=== PATIENT | male | born 1970 | race Caucasian/White ===

== ENCOUNTER → 2019-12-01 06:53 | Outpatient (CLI) | payer OTHER, SELFPAY ==
[2019-11-23 14:24] VITALS: BMI 31.7
--- NOTE | 2019-12-01 06:53 | MRI_ITS ---
STUDY: MRI BRAIN WITH AND WITHOUT CONTRAST REASON FOR EXAM: Male, 49 years old. Right eye blurring of vision x10-12 weeks. Suspect occipital lobe CVA from A. Fib related embolus. TECHNIQUE: Standardized multiplanar fat and water weighted pulse sequences were obtained. 21ml of IV Dotarem was administered for the contrast portion of the examination. COMPARISON: None. FINDINGS: No restricted diffusion to suspect acute or subacute ischemic infarct. No focal signal abnormalities throughout the brain parenchyma. Normal size of the ventricles and extra-axial spaces for the patient''s age. Normal white matter tracts of the supratentorial brain. Normal bilateral basal ganglia. Normal thalami. There is no extra-axial fluid accumulation. Normal flow voids within the major intracranial circulation suggesting patency by spin echo criteria. Normal venous enhancement. There is no enhancing intra-axial or extra-axial abnormality. Normal sella turcica, pituitary gland, infundibular stalk, optic chiasm and hypothalamus. Normal tectal plate and pineal gland. Normal midbrain, meka and medulla. Normal cerebellum. Normal basal cisterns. Normal bilateral temporal bones. Normal bilateral internal auditory canals. No demonstrated orbital abnormality, within the constraints of a routine brain study. Normal visualized paranasal sinuses. Normal calvarium and skull base. Normal visualized soft tissue structures. Normal visualized upper cervical spine. MRI/Brain W/WO Contrast IMPRESSION: Normal unenhanced and enhanced MRI of the brain. Electronically Signed: Fercho Barrera MD at 11:41 EDT , Service support ,
[2019-12-01 09:32] LABS: Absolute Neutrophil Count 2.2 X10^3/uL (2.0-7.7); Basophil# 0.02 X10^3/uL; Basophil% 0.5 % (0-1); Eosinophil# 0.07 X10^3/uL; Eosinophils% 1.7 % (0-5); Hematocrit 43.1 % (40-54); Hemoglobin 14.4 g/dL (13.0-16.5); Lymphocyte % 29.9 % (19-41); Mean Corp Hgb Conc 33.4 g/dL (32-36); Mean Corpuscular Hgb 30.9 pg (27.0-32.0); Mean Corpuscular Volume 92.5 fL (80-94); Monocyte# 0.55 X10^3/uL; Monocyte% 13.7 % (0-10); NRBC Flagged by Analyzer 0 % (0-5); Neutrophil # 2.16 X10^3/uL (2.7-7.7); Platelet Count 242 K/mm3 (150-450); RBC Distribution Width CV 12.1 % (11.6-14.6); RBC Distribution Width SD 41.2 fl (35.1-43.9); Red Blood Count 4.66 M/mm3 (4.6-6.2)
[2019-12-01 10:12] LABS: ALB/GLOB Ratio 1.1 RATIO (0.9-2.4); AST(SGOT) 22 U/L (15-37); Alanine Aminotransfer ALT/SGPT 40 U/L (16-61); Albumin, Serum 3.6 g/dL (3.2-5.0); Alkaline Phosphatase 74 U/L (45-117); Anion Gap 5 (5-15); BUN 20 mg/dL (7-18); BUN/Creat Ratio 22.1 RATIO (10-20); Calcium,Total 8.4 mg/dL (8.5-10.1); Chloride 105 mmol/L (98-107); Cholesterol 165 mg/dL (200); Creatinine, Serum 0.91 mg/dL (0.70-1.30); EST Glomerular Filtration Rate 94 mL/min (>60); Est Glom Filt Rate - Afr Amer 114 mL/min (>60); Free T3 3.2 pg/mL (2.18-3.98); Globulin 3.3 g/dL (2.2-4.2); Glucose 95 mg/dL (74-106); High Density Lipoprotein 54 mg/dL; Potassium 4.2 mmol/L (3.5-5.1); Protein, Total 6.9 g/dL (6.4-8.2); Sodium Level 140 mmol/L (136-145); T4 Total, Thyroxin 8.5 ug/dL (4.5-12.1); Thyroid Stim Hormone (TSH) 1.47 uIU/mL (0.358-3.74); Triglycerides 56 mg/dL; Very Low Density Lipoprotein 11 mg/dL (5-40)
== END ==
PROVIDERS: PCP Family Medicine; Referring Provider Specialist; Visit Provider Specialist
DX: H53.8 Other visual disturbances (principal); I34.1 Nonrheumatic mitral (valve) prolapse; I10 Essential (primary) hypertension; I48.91 Unspecified atrial fibrillation
CPT/HCPCS: 36415; 70553; 80053; 80061; 84436; 84443; 84481; 85025; A9575

== ENCOUNTER → 2019-12-03 13:56 | Outpatient (CLI) | payer OTHER, SELFPAY ==
[2019-11-23 14:24] VITALS: BMI 31.7
--- NOTE | 2019-12-03 13:58 | ECHOD_ITS ---
Reason For Study: AFIB, H/O MVP. Procedure This was a 2D Doppler, Color Flow transthoracic echocardiogram. The study was technically difficult. Due to arrhythmia. Exam performed in department. Left Ventricle Normal LV size. The estimated ejection fraction is 60 %. Normal diastology for age. No regional wall motion abnormalities noted. Right Ventricle Normal RV size. Normal systolic function. Atria The left atrium is mildly enlarged. Normal right atrium. No doppler evidence for ASD. Mitral Valve There is no mitral valve stenosis. Trivial mitral valve insufficiency. Tricuspid Valve There is no tricuspid stenosis. Unable to estimate RV systolic pressure due to inadequate jet, pulmonary artery pressure probably normal. Aortic Valve Trisinus/trileaflet aortic valve. There is no aortic stenosis. No aortic valve insufficiency. Pulmonic Valve There is no pulmonic valvular stenosis. No pulmonic valve insufficiency. Great Vessels Normal aortic root. Pericardium/Pleural No pericardial effusion. MMode/2D Measurements & Calculations LVIDd: 4.4 cm IVSd: 1.0 cm Ao root diam: 3.7 cm LVIDs: 2.9 cm LVPWd: 1.1 cm RVDd: 3.6 cm FS: 33.4 % LAV(MOD-bp): 66.5 ml LA A4 area: 21.8 cm2 LA dimension(2D): 4.0 cm LAV(MOD-bp) Indexed: 29.2 ml/m2 LAV(MOD-sp2): 63.4 ml LAV(MOD-sp4): 66.9 ml RA A4 area: 18.9 cm2 Doppler Measurements & Calculations MV E max sabra: 107.0 cm/sec Ao V2 max: 102.6 cm/sec LV V1 max: 98.3 cm/sec Ao max P.2 mmHg LV V1 max P.9 mmHg Ao V2 mean: 77.2 cm/sec LV V1 mean P.0 mmHg Ao mean P.5 mmHg LV V1 mean: 67.7 cm/sec Ao V2 VTI: 16.6 cm LV V1 VTI: 15.9 cm PA V2 max: 90.4 cm/sec TR max sabra: 273.9 cm/sec TR max P.0 mmHg Interpretation Summary The estimated ejection fraction is 60 %. Normal diastology for age. The left atrium is mildly enlarged. Trivial mitral valve insufficiency. Ordering Physician: Artis Hilliard Referring Physician: Karsten Diggs Performed By: Petty Collazo RDCS, RVT
== END ==
PROVIDERS: PCP Family Medicine; Referring Provider Specialist; Visit Provider Specialist
DX: I48.91 Unspecified atrial fibrillation (principal); I10 Essential (primary) hypertension; I34.1 Nonrheumatic mitral (valve) prolapse; R55 Syncope and collapse
CPT/HCPCS: 93306

== ENCOUNTER 2020-12-06 09:00 | Outpatient (RCR) | payer OTHER, SELFPAY ==
[2020-09-12 13:27] VITALS: BMI 33.3
[2020-12-06] MEDS: COVID-19 VACC, MRNA(PFIZER)/PF 30 MCG/0.3 ML SYRINGE IM (15:00)
[2020-12-27] MEDS: COVID-19 VACC, MRNA(PFIZER)/PF 30 MCG/0.3 ML SYRINGE IM (18:14)
== END 2021-02-28 23:59 ==
LOC: IMMUN 09:00
PROVIDERS: PCP Family Medicine; Visit Provider Family Medicine
DX: Z23 Encounter for immunization (principal)
CPT/HCPCS: 0001A; 0002A; 91300

== ENCOUNTER → 2021-03-21 06:30 | Outpatient (CLI) | payer OTHER, SELFPAY ==
[2021-03-08 08:58] VITALS: BMI 33.3
--- NOTE | 2021-03-21 08:39 | STRESSREP_ITS ---
Stress Test Report Date: 03-21-2021 Procedure: Pharmacologic stress nuclear imaging study Indications: Chest pain; paroxysmal atrial fibrillation; mitral valve prolapse Consent: Per the patient Procedure: The patient underwent pharmacologic (Regadenoson 0.4mg ) evaluation with a peak heart rate of 157 beats per minute (92%predicted maximal heart rate) and a peak blood pressure of 170/110 mmHg. The baseline ECG demonstrated atrial fibrillation. The peak pharmacologic ECG demonstrated continued atrial fibrillation with diffuse nonspecific ST segment a bnormality. There were no cardiac dysrhythmias pretest, during pharmacologic infusion, or recovery. There was no complaint of chest discomfort during pharmacologic infusion or recovery. The examination was discontinued secondary to completion of protocol. Impression: 1. Pharmacologic (Regadenoson) evaluation 2. Peak pharmacologic ECG with continued atrial fibrillation with diffuse nonspecific ST segment abnormality. 3. There were no cardiac dysrhythmias pretest, during pharmacologic infusion, or recovery. 4. Nuclear images pending Myocardial perfusion imaging study: Technique: The patient was injected with millicuries of technetium 99m Cardiolite and subsequently rest SPECT Cardiolite nuclear imaging was obtained in the horizontal long, vertical long, and short axis views. The patient underwent pharmacologic (Regadenoson) evaluation with a peak heart rate of 157 beats per minute (92% percent predicted maximal heart rate) and a peak blood pressure of 170/110 mmHg. The patient was injected with millicuries of technetium 99m Cardiolite and subsequently stress SPECT Cardiolite nuclear imaging was obtained in the horizontal long, vertical long, and short axis views. A gated Cardiolite study at peak stress was obtained. Interpretation: Rest and stress SPECT Cardiolite nuclear imaging status post realignment, normalization, and attenuation correction demonstrate the appearance of body motion during image acquisition and otherwise the appearance of relative uniform tracer uptake and myocardial perfusion appearing within normal limits. There is end systolic thickening and brightening. The gated Cardiolite study demonstrates myocardial thickening and inward wall motion. The reported LVEF is 79%. Impression: 1. Rest and stress SPECT Cardiolite nuclear imaging demonstrate the appearance of body motion during image acquisition and otherwise the appearance of relative uniform tracer uptake and myocardial perfusion appearing within normal limits. 2. The gated Cardiolite study reports an LVEF of 79%. This note was generated with [employer] software. It may contain incorrect words, spelling, and punctuation that were not noted in checking the note before signing.
== END ==
PROVIDERS: PCP Family Medicine; Referring Provider Nurse Practitioner Family; Visit Provider Nurse Practitioner Family
DX: I48.0 Paroxysmal atrial fibrillation (principal); R07.9 Chest pain, unspecified
CPT/HCPCS: 78452; 93017; A9500; A4216; J2785

== ENCOUNTER 2021-04-21 08:16 | Day surgery (SDC) | payer OTHER, SELFPAY ==
[2021-04-13 08:35] VITALS: BMI 33.0
--- NOTE | 2021-04-13 09:50 | RAD_ITS ---
STUDY: X-RAY CHEST REASON FOR EXAM: Male, 50 years old. SOB TECHNIQUE: PA and lateral views of the chest. COMPARISON: None. FINDINGS: The lungs are clear and expanded. There is no demonstrated pleural abnormality. Normal size heart. Normal mediastinum and alexey. Normal visualized pulmonary arteries. Normal visualized aortic arch and descending thoracic aorta. Normal visualized thoracic spine. Normal visualized ribs, clavicles, and shoulders. There is no demonstrated abnormality of the visualized soft tissue structures of the upper abdomen. RAD/Chest PA and Lateral IMPRESSION: Normal x-ray examination of the chest. Electronically Signed: Rehan Villeda MD at 14:41 EDT , Service support ,
[2021-04-13 10:23] LABS: Hematocrit 45.2 % (40-54); Hemoglobin 14.9 g/dL (13.0-16.5); Mean Corpuscular Hgb 30.8 pg (27.0-32.0); Mean Corpuscular Volume 93.6 fL (80-94); Mean Platelet Vol. 10.7 fl (6.2-12.0); Platelet Count 252 K/mm3 (150-450); RBC Distribution Width SD 41.2 fl (35.1-43.9); Red Blood Count 4.83 M/mm3 (4.6-6.2); White Blood Count 4.2 K/mm3 (4.4-11.0)
[2021-04-13 11:04] LABS: Anion Gap 4 (5-15); BUN 12 mg/dL (7-18); BUN/Creat Ratio 14.3 RATIO (10-20); Calcium,Total 8.8 mg/dL (8.5-10.1); Chloride 105 mmol/L (98-107); Cholesterol 194 mg/dL (200); Creatinine, Serum 0.84 mg/dL (0.70-1.30); EST Glomerular Filtration Rate 103 mL/min (>60); Est Glom Filt Rate - Afr Amer 124 mL/min (>60); Glucose 98 mg/dL (74-106); High Density Lipoprotein 61 mg/dL; Magnesium 2.3 mg/dL (1.6-2.6); Potassium 4.3 mmol/L (3.5-5.1); Sodium Level 139 mmol/L (136-145); Thyroid Stim Hormone (TSH) 1.09 uIU/mL (0.358-3.74); Triglycerides 99 mg/dL; Very Low Density Lipoprotein 20 mg/dL (5-40)
[2021-04-20 08:11] VITALS: BMI 33.0
--- NOTE | 2021-04-21 07:32 | HP.PCM_ITS ---
History and Physical Date of Admission: 04/21/21 [facility] [address] [place] [address] [phone] OFFICE VISITDate of Service: 04/13/21 MR#:[id number]:[id number]: MAURY YOO #[id number]:[id number] Provider: DAVIDSON Peck/Sex: 50/M [facility] HPI History of Present Illness Surgical H&P: Yes Details: This is a 50-year-old gentleman who presents here today for follow-up on his atrial fibrillation and hypertension. When he was seen in the office last month he was noted to be in atrial fibrillation. He was sometimes aware of this. He did undergo a stress test which was negative. His blood pressures at home have still been elevated. He does feel that at times he can feel his palpitations. He does feel that he may be more short of breath at times. He also feels that occasionally has palpitations. He does not have any chest pain or lower extremity edema. 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 Accompanied by: None Is patient in pain?: No Allergies tramadol Allergy (Intermediate, Verified 04/13/21 08:33) Unknown Medications metoprolol succinate 100 mg tablet,extended release 24 hr 100 mg PO DAILY tab 09/12/20 [History Confirmed 04/13/21] apixaban 5 mg tablet 5 mg PO BID #180 tab 03/08/21 [Rx Confirmed 04/13/21] lisinopril 10 mg tablet 10 mg PO DAILY #30 tab 04/13/21 [Rx Confirmed 04/13/21] [facility] Medical History (Updated 04/13/21 @ 09:24 by Shiloh CEDEÑO, DAVIDSON) Atrial fibrillation with RVR Blurred vision Erectile dysfunction Essential hypertension GERD (gastroesophageal reflux disease) History of syncope Longstanding persistent atrial fibrillation Migraines MVP (mitral valve prolapse) Prediabetes Surgical History History of cholecystectomy Family History Mother Fibromyalgia Father Heart disease Valve replacement Pulmonary fibrosis Grandmother CAD (coronary artery disease), Onset Age: 60 CABG Grandfather Cancer throat Grandfather Myocardial infarction Social History Smoking Status: Never smoker alcohol intake: never substance use type: does not use caffeine: Yes Type: coffee Number of servings: 1 ROS Const Const: Positive for fatigue (sometimes); Negative for weakness, headache(s), frequent falls, excessive sweating, weight gain or weight loss Eyes Eyes: Negative for blind spots, loss of peripheral vision, transient loss of vision, blurry vision, change in vision or double vision ENT ENT: Negative for headache(s), dizziness, tinnitus, Nosebleed/epistaxis or balance problems Cardio Chest Pain: No Palpitations: Yes Edema: None Muscle aches with walking: None Resp Respiratory: Negative for SOB with activity, SOB at rest, SOB orthopnea\SOB lying down or Cough GI GI: Negative nausea, vomiting, heartburn, bloating, vomiting blood/hematemesis, bright, red blood in stools or black,tarry stools : Negative for hematuria Musc Musc: Negative for muscle aches/ myalgia, muscle weakness, joint pain or balance problems Skin Skin: Negative rash or wounds Neuro Neuro: Negative for dizziness, lightheadedness, near syncope, syncope, orthostatic symptoms, frequent falls, headache(s), weakness, confusion, memory loss, restless legs, blurry vision or double vision Gui Hematologic/Lymphatic: Negative for easy bleeding or easy bruising Endo Endo: Positive for fatigue (sometimes); Negative for cold intolerance, heat intolerance or excessive sweating Psych Psych: Negative for anxiety or depression Allergy Allergy/Immunology: Negative for rash Cardiology Exam Const Appearance: cooperative, healthy appearing, comfortable, no acute distress and well developed Orientation: alert, awake and oriented x3 Head Head: normal to inspection Ears: hearing grossly normal bilaterally Nose: external nose normal Face and Sinus: face symmetric Mouth: oral mucosae normal, lip normal and moist mucous membranes Eyes General: appearance normal, both eyes and all related structures Eyelids: eyelids normal Conjunctivae: conjunctivae normal Pupils: PERRL EOM: EOM intact bilaterally Neck Neck: normal visual inspection and trachea midline; Negative no JVD Carotids: Negative bruit Chest Chest inspection: normal inspection of the chest Auscultation: Bilateral: Clear to Auscultation Cardio Palpation: normal PMI Rate: regular rate Rhythm: irregularly irregular Heart sounds: S1 normal and S2 normal; Negative rub, gallop or murmur GI GI: soft, no hepatosplenomegaly and bowel sounds present Neuro General: patient alert, patient awake, patient oriented x3 and CN's II-XI intact bilaterally Extremities Pulses: Normal: Right Posterior Tibial Pulse, Left Posterior Tibial Pulse, Right Radial Pulse and Left Radial Pulse Lower Extremity Edema: None: Bilateral Psych Psychological: normal affect Assessment and Plan Assessment and Plan (1) Longstanding persistent atrial fibrillation: Status: Acute Orders: Orders: Cardioversion Today Basic Metabolic Profile (BMP) Today Magnesium Today Thyroid Stim Hormone (TSH) Today CBC-Complete Blood Cnt No Diff Today Chest PA and Lateral Today Lipid Profile Today Plan - Shiloh CEDEÑO, PA: Feel that patient's atrial fibrillation is now persistent. Feel that he would benefit from a cardioversion. This is scheduled for the near future as his anticoagulation has not been interrupted. He will continue with his metoprolol and stop his Cardizem. As his heart rate is adequately controlled. If cardioversion is not successful we will consider antiarrhythmic and possible sleep studies. Patient Instructions: Your cardioversion is scheduled for 04/21 at noon. You need to arrive at 1030. 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 Patient will stop his Cardizem and start lisinopril. We will continue to monitor and adjust accordingly. Plan Details Other Medications: New: lisinopril 10 mg PO DAILY 30 tabs 3RF Discontinued: diltiazem HCl Discontinued Reason: Order Changed 120 mg PO DAILY 30 caps 11RF Follow Up: 04/13/21 (needs EKG scheduled one week after 04/21- scheduled for cardioversion that day) 6 Weeks (4-6 Weeks MMM) COVID (Procedure Consent) Procedure Criteria Procedure Criteria: Yes Elective The surgeon/proceduralist and patient have discussed in detail the risk of exposure to and/or potential harm posed by the COVID-19 virus with having a surgery/procedure at this time versus the risk of delaying the surgery/procedure. It is not possible to know either the risk of delaying the surgery or procedure or chance of getting an infection with perfect accuracy, but a joint decision was made between the patient and the surgeon/proceduralist to proceed at this time with the scheduled surgery/procedure as indicated on the consent form. Coding Level of Care Code Off vis,est,level 4 Diagnoses Longstanding persistent atrial fibrillation I48.11 Essential hypertension I10 Coding Level of Care Code Off vis,est,level 4 Diagnoses Longstanding persistent atrial fibrillation I48.11 Essential hypertension I10 Supplemental Info Supplemental Information Echocardiogram 2020: The estimated ejection fraction is 60 %. Normal diastology for age. The left atrium is mildly enlarged. Trivial mitral valve insufficiency. ADDENDUM by Dr. Yony Diggs MD on 03/21/21 at 1203 Addendum: The technique portion of the report should read as the following: Technique: The patient was injected with 14.6 millicuries of technetium 99m Cardiolite and subsequently rest SPECT Cardiolite nuclear imaging was obtained in the horizontal long, vertical long, and short axis views. The patient underwent pharmacologic (Regadenoson) evaluation with a peak heart rate of 157 beats per minute (92% percent predicted maximal heart rate) and a peak blood pressure of 170/110 mmHg. The patient was injected with 44.1 millicuries of technetium 99m Cardiolite and subsequently stress SPECT Cardiolite nuclear imaging was obtained in the horizontal long, vertical long, and short axis views. A gated Cardiolite study at peak stress was obtained. 03/21/21 1203Date Yony Diggs MD cc: BHARGAV Horowitz; Dr. James Diggs MD ~*Signed Stress Test Report Date: 03-21-2021 Procedure: Pharmacologic stress nuclear imaging study Indications: Chest pain; paroxysmal atrial fibrillation; mitral valve prolapse Consent: Per the patient Procedure: The patient underwent pharmacologic (Regadenoson 0.4mg ) evaluation with a peak heart rate of 157 beats per minute (92%predicted maximal heart rate) and a peak blood pressure of 170/110 mmHg. The baseline ECG demonstrated atrial fibrillation. The peak pharmacologic ECG demonstrated continued atrial fibrillation with diffuse nonspecific ST segment abnormality. There were no cardiac dysrhythmias pretest, during pharmacologic infusion, or recovery. There was no complaint of chest discomfort during pharmacologic infusion or recovery. The examination was discontinued secondary to completion of protocol. Impression: 1. Pharmacologic (Regadenoson) evaluation 2. Peak pharmacologic ECG with continued atrial fibrillation with diffuse nonspecific ST segment abnormality. 3. There were no cardiac dysrhythmias pretest, during pharmacologic infusion, or recovery. 4. Nuclear images pending Myocardial perfusion imaging study: Technique: The patient was injected with millicuries of technetium 99m Cardiolite and subsequently rest SPECT Cardiolite nuclear imaging was obtained in the horizontal long, vertical long, and short axis views. The patient underwent pharmacologic (Regadenoson) evaluation with a peak heart rate of 157 beats per minute (92% percent predicted maximal heart rate) and a peak blood pressure of 170/110 mmHg. The patient was injected with millicuries of technetium 99m Cardiolite and subsequently stress SPECT Cardiolite nuclear imaging was obtained in the horizontal long, vertical long, and short axis views. A gated Cardiolite study at peak stress was obtained. Interpretation: Rest and stress SPECT Cardiolite nuclear imaging status post realignment, normalization, and attenuation correction demonstrate the appearance of body motion during image acquisition and otherwise the appearance of relative uniform tracer uptake and myocardial perfusion appearing within normal limits. There is end systolic thickening and brightening. The gated Cardiolite study dem onstrates myocardial thickening and inward wall motion. The reported LVEF is 79%. Impression: 1. Rest and stress SPECT Cardiolite nuclear imaging demonstrate the appearance of body motion during image acquisition and otherwise the appearance of relative uniform tracer uptake and myocardial perfusion appearing within normal limits. 2. The gated Cardiolite study reports an LVEF of 79%. Labs: LDL Cholesterol 113 mg/dL (0-130) HDL Cholesterol 61 mg/dL (40-) Triglycerides 99 mg/dL (-199) VLDL Cholesterol 20 mg/dL (5-40) Diagnostics: Electrocardiogram Echocardiogram Stress Test NM Stress Test Chest X-Ray Pulmonary: No Data to Display 04/13/21 [id number]<Electronically signed by Shiloh CEDEÑO>Date Shiloh CEDEÑO Cosigner Signature:Date (if applicable) CC: Dr. James Diggs MD ~ I have examined the patient the following changes are noted: This note was generated using a voice recognition system and there may be incorrect words, spelling or punctuation that were not noted when reviewing the office note prior to saving.
--- NOTE | 2021-04-21 10:14 | PRO.PCM_ITS ---
Procedure Report Date of Procedure: 04/21/21 CONSCIOUS SEDATION REPORT DATE OF SERVICE: April 21, 2021 BRIEF HISTORY OF PRESENT ILLNESS: The patient is a 50-year-old male who presented to [facility] for an elective outpatient cardioversion due to underlying atrial fibrillation. The patient denies any prior anesthetic complications. He has never been diagnosed with COPD, asthma or obstructive sleep apnea. The patient is a lifelong non-smoker. He is systemically anticoagulated on Eliquis. His last surface echocardiogram revealed an ejection fraction of 60%. PHYSICAL EXAMINATION: VITAL SIGNS: Reviewed and were acceptable. GENERAL: The patient is a male, in no apparent distress, speaking in full sentences. HEENT: Normocephalic, atraumatic. Mucous membranes are moist and pink. Good mouth opening noted. Trachea is midline. CHEST: S1, S2 irregularly irregular. No murmurs, rubs or gallops were noted. LUNGS: Clear to auscultation bilaterally without appreciable wheezes, rales or rhonchi. ABDOMEN: Soft, nontender, nondistended. Positive bowel sounds. EXTREMITIES: There is no clubbing, cyanosis or edema. ASA Class: II DESCRIPTION OF PROCEDURE: After confirmation of informed consent, the patient's anesthesia plan was reviewed in detail. Propofol was chosen. Risks and benefits were reviewed and the patient agreed to proceed. At 0954, the patient was given his first bolus of propofol. In total, throughout the duration of the procedure, the patient required a total of 150 mg of propofol to achieve an appropriate level of sedation, after which time, he was given a 200 joule synchronized cardioversion by Dr. Diggs at the bedside. This was successful in achieving normal sinus rhythm. The patient was monitored until 1008, at which time he reached his baseline mental status and function. The patient tolerated the procedure well. COMPLICATIONS: None ESTIMATED BLOOD LOSS: None RECOMMENDATIONS: Okay to recover in usual fashion. Procedures Pulmonary 9xxxx: [id number] Con Sedation
--- NOTE | 2021-04-21 11:52 | CARDIOVERS ---
Cardioversion Cardioversion: Date: 04-21-2021 Procedure: Synchronized Biphasic DC Cardioversion Indications: Atrial fibrillation Consent: Per the Patient Anesthesia: per Dr. Wiley of pulmonology and critical care medicine with propofol 150 mg IV push total Procedure: Synchronized Biphasic DC Cardioversion: 200 J x 1: Result: Sinus rhythm Complications: no apparent complications This note was generated with [employer] software. It may contain incorrect words, spelling, and punctuation that were not noted in checking the note before signing.
== END 2021-04-21 11:07 | disposition home or self-care (01) ==
PROVIDERS: Physician Assistant Medical; PCP Family Medicine; Referring Provider Internal Medicine Cardiovascular Disease; Visit Provider Internal Medicine Cardiovascular Disease
DX: I48.11 Longstanding persistent atrial fibrillation (principal); I10 Essential (primary) hypertension; R73.03 Prediabetes; K21.9 Gastro-esophageal reflux disease without esophagitis; Z79.01 Long term (current) use of anticoagulants; Z79.899 Other long term (current) drug therapy
CPT/HCPCS: 36415; 71046; 80048; 80061; 83735; 84443; 85027; 92960; 93005; J7040

== ENCOUNTER → 2022-09-05 | Outpatient (CLI) | payer OTHER, SELFPAY ==
--- NOTE | 2022-09-05 08:07 | MRI_ITS ---
EXAM: MR RIGHT LOWER EXTREMITY WITHOUT INTRAVENOUS CONTRAST, KNEE CLINICAL INDICATION: pain and injury TECHNIQUE: Multiplanar and multisequence MR images of the right knee without intravenous contrast. This report was created using [employer] report generation technology. COMPARISON: Previous ratio was probably has gone to the FINDINGS: BONES/JOINTS: See below. EXTENSOR MECHANISM: Unremarkable. MEDIAL MENISCUS: Longitudinal horizontal oblique tearing of the posterior horn the medial meniscus. Tear contacts the inferior meniscal surface. There is an associated tiny parameniscal ganglion cyst. LATERAL MENISCUS: Unremarkable. MEDIAL CAPSULE/SUPPORTING STRUCTURES: Unremarkable. Intact. LATERAL CAPSULE/SUPPORTING STRUCTURES: Unremarkable. Lateral collateral ligamentous complex, inclusive of the popliteal tendon, are intact. ANTERIOR CRUCIATE LIGAMENT: Unremarkable. Intact. POSTERIOR CRUCIATE LIGAMENT: Unremarkable. Intact. MUSCLES: Unremarkable. CARTILAGE: Small area of focal high-grade chondral loss involving the medial patellar facet without subchondral signal alteration. FLUID: Small joint effusion with small Irving''s cyst. OTHER SOFT TISSUES: Prepatellar subcutaneous edema. No organized fluid collections. MRI/Lower Ext Joint Only (Routine) IMPRESSION: 1. Longitudinal horizontal oblique tearing of the posterior horn the medial meniscus. Tear contacts the inferior meniscal surface. There is an associated tiny parameniscal ganglion cyst. 2. Small area of focal high-grade chondral loss involving the medial patellar facet without subchondral signal alteration. 3. Small joint effusion with small Irving''s cyst. Electronically Signed: Rai Day MD at 21:30 EST Reading Location ID and State: [address] [place] [address] Tel , Service support ,
== END | disposition home or self-care (01) ==
PROVIDERS: PCP Family Medicine; Referring Provider Physician Assistant; Visit Provider Physician Assistant
DX: M23.91 Unspecified internal derangement of right knee (principal)
CPT/HCPCS: 73721

== ENCOUNTER → 2023-09-17 | Outpatient (CLI) | payer OTHER, SELFPAY ==
--- NOTE | 2023-09-17 17:46 | CT_ITS ---
STUDY: CTA CHEST REASON FOR EXAM: Male, 53 years old. Ascending aorta dilatation RADIATION DOSAGE (If Supplied By Facility): CTDIvol = ( 12.26 ) mGy, DLP = ( 459.71 ) mGycm TECHNIQUE: The examination was performed with the intravenous administration of IV 100mL Isovue-[id number]. Post-processing of the angiographic images was performed, with multiplanar reformation and 3D reconstruction. Individualized dose optimization techniques were used for this CT. COMPARISON: No relevant prior comparison study available FINDINGS: Normal enhancement of the main pulmonary artery and right and left pulmonary arteries. Normal enhancement of the bilateral peripheral pulmonary arteries. There is no demonstrated pulmonary embolism. Suboptimal evaluation of the distal peripheral branches. Normal thoracic aorta and visualized great vessels. The ascending thoracic aorta measures about 3.6 cm in transverse diameter. There is no evidence of aneurysm. There is no demonstrated aortic dissection. Normal heart and pericardium. Normal mediastinum. Normal hilar regions. Normal visualized trachea and bronchi. The lungs are well expanded. There are no pulmonary infiltrates. No evidence of pulmonary nodules. There are no pleural effusions. Normal chest wall structures. Schmorl''s nodes and mid thoracic spine. No demonstrated acute osseous changes. Visualized portions of the upper abdomen are essentially unremarkable. Status post cholecystectomy. CT/CTA Chest W/WO Contrast IMPRESSION: 1. No evidence of central pulmonary embolism or aortic dissection. 2. No evidence of aortic aneurysm. 3. No mass, adenopathy or acute pulmonary infiltrates. Electronically Signed: Speedy Matthews MD at 11:19 EST ,
[2023-09-17 18:16] LABS: CREATININE FINGERSTICK < 1.0 mg/dL (0.70-1.30); EGFR FINGERSTICK > 60.0000 mL/min (>60)
== END | disposition home or self-care (01) ==
LOC: CT 17:42
PROVIDERS: PCP Family Medicine; Referring Provider Nurse Practitioner Gerontology; Visit Provider Nurse Practitioner Gerontology
DX: I77.810 Thoracic aortic ectasia (principal)
CPT/HCPCS: 71275; Q9967

== ENCOUNTER → 2024-07-06 | Outpatient (CLI) | payer OTHER, SELFPAY ==
[2024-07-06 07:20] LABS: Hematocrit 39.6 % (40-54); Mean Corp Hgb Conc 32.8 g/dL (32-36); Mean Corpuscular Hgb 31.4 pg (27.0-32.0); Mean Corpuscular Volume 95.7 fL (80-94); Mean Platelet Vol. 10.4 fl (6.2-12.0); Platelet Count 239 K/mm3 (150-450); RBC Distribution Width CV 12.4 % (11.6-14.6); RBC Distribution Width SD 43.5 fl (35.1-43.9); Red Blood Count 4.14 M/mm3 (4.6-6.2); White Blood Count 5.7 K/mm3 (4.4-11.0)
[2024-07-06 08:19] LABS: ALB/GLOB Ratio 1.1 RATIO (0.9-2.4); AST(SGOT) 16 U/L (15-37); Alanine Aminotransfer ALT/SGPT 23 U/L (16-61); Albumin, Serum 3.4 g/dL (3.2-5.0); Alkaline Phosphatase 74 U/L (45-117); Anion Gap 5 (5-15); BUN 18 mg/dL (7-18); BUN/Creat Ratio 25.5 RATIO (10-20); Calcium,Total 8.3 mg/dL (8.5-10.1); Chloride 108 mmol/L (98-107); Cholesterol 185 mg/dL (200); Creatinine, Serum 0.71 mg/dL (0.70-1.30); EST Glomerular Filtration Rate 123 mL/min (>60); Est Glom Filt Rate - Afr Amer 149 mL/min (>60); Glucose 101 mg/dL (74-106); High Density Lipoprotein 66 mg/dL; Potassium 3.7 mmol/L (3.5-5.1); Protein, Total 6.4 g/dL (6.4-8.2); Sodium Level 140 mmol/L (136-145); Triglycerides 47 mg/dL; Very Low Density Lipoprotein 9 mg/dL (5-40)
== END | disposition home or self-care (01) ==
LOC: LAB 06:27
PROVIDERS: PCP Family Medicine; Referring Provider Family Medicine; Visit Provider Family Medicine
DX: I10 Essential (primary) hypertension (principal); I48.91 Unspecified atrial fibrillation; Z12.5 Encounter for screening for malignant neoplasm of prostate
CPT/HCPCS: 36415; 80053; 80061; 84153; 84443; 85027; G0103